=== PATIENT | male | born 1990 | race Caucasian/White ===

== ENCOUNTER → 2017-06-26 | Outpatient (CLI) | payer BC | LOC: LAB 20:52 | DX: R22.1 Localized swelling, mass and lump, neck (principal) | CPT/HCPCS: 86735 ==

== ENCOUNTER → 2020-04-17 | Outpatient (CLI) | payer BC | END | disposition home or self-care (01) | LOC: PLD 14:58 → LAB SHORT 14:58 | DX: D22.5 Melanocytic nevi of trunk (principal); L08.9 Local infection of the skin and subcutaneous tissue, unspecified; L40.8 Other psoriasis | CPT/HCPCS: 88305; 88312 ==

== ENCOUNTER 2020-07-30 03:25 | Emergency (ER) | payer BC ==
[~2020-07-30] VITALS: Ht 180.3 cm; Wt 105.2 kg
== END 2020-07-30 06:24 | disposition home or self-care (01) ==
LOC: ER 03:25
DX: S01.91XA Laceration without foreign body of unspecified part of head, initial encounter (principal); Z88.8 Allergy status to other drugs, medicaments and biological substances
CPT/HCPCS: 12001; 36415; 70450; 72125; 90471; 99283-25